=== PATIENT | female | born 1970 | race African-American/Black ===

== ENCOUNTER 2017-11-05 09:22 | Emergency (ER) | payer OTHER ==
[~2017-11-05] VITALS: Ht 165.1 cm; Wt 95.0 kg
[2017-11-05] MEDS ORDERED: ASPIRIN 81MG TABLET PO STA (09:53)
[2017-11-05] MEDS ORDERED: ONDANSETRON HCL 4MG/2ML VIAL IV STA (09:53)
[2017-11-05] MEDS ORDERED: MORPHINE SULFATE 4 MG/ML CPJ (NOT FOR IM USE) IV STA (09:53)
[2017-11-05 10:29] LABS: BASOPHILS % 0.3 % (0.0-2.0); EOSINOPHILS % 0.6 % (0.0-5.0); HEMATOCRIT. 33.1 % (36.0-48.0); HEMOGLOBIN. 10.3 g/dL (12.0-16.0); LYMPHOCYTES % 9.8 % (20.0-50.0); MEAN CORPUSCULAR HEMOGLOBIN 21.3 pg (28.0-32.0); MEAN CORPUSCULAR VOLUME 68.4 fL (81.0-99.0); MEAN PLATELET VOLUME 8.2 fl (7.4-10.4); MONOCYTES % 8.8 % (2.0-8.0); NEUTROPHILS % 80.5 % (40.0-76.0); PLATELET 330 x1000/uL (130-400); RED BLOOD CELL COUNT 4.84 mill/uL (4.2-5.4); RED CELL DISTRIBUTION WIDTH 16.4 % (11.6-14.6)
[2017-11-05 10:42] LABS: CHLORIDE 104 mEq/L (98-107)
[2017-11-05 10:43] LABS: INR 1.2; PARTIAL THROMBOPLASTIN TIME 26.1 sec (23.4-31.0)
[2017-11-05 10:48] LABS: TROPONIN I < 0.02 ng/mL (0.00-0.04)
[2017-11-05 10:54] LABS: HCG SCREEN NEGATIVE
[2017-11-05 11:11] LABS: PLATELET ESTIMATE NORMAL
[2017-11-05 13:23] VITALS: BP 155/80
== END 2017-11-05 13:37 | disposition short-term general hospital (02) ==
LOC: ER 09:35 → CANBEDREQ 13:51
DX: R07.9 Chest pain, unspecified (principal); E11.9 Type 2 diabetes mellitus without complications; I10 Essential (primary) hypertension; R53.1 Weakness; R42 Dizziness and giddiness
CPT/HCPCS: 36415; 71045; 80053; 81025; 83690; 83880; 84443; 84484; 84703; 85025; 85610; 85730; 93005; 96374; 96375; 99291; J2270; J2405